=== PATIENT | female | born 1995 | race Caucasian/White ===

== ENCOUNTER → 2025-06-22 11:11 | Outpatient (REF) | payer OTHER, SELFPAY | LOC: DHSLP 11:11 | PROVIDERS: ATTENDING PHYSICIAN Internal Medicine; FAMILY PHYSICIAN Family Medicine | DX: G47.61 Periodic limb movement disorder (principal); R06.83 Snoring | CPT/HCPCS: 95810 ==

== ENCOUNTER → 2025-06-23 07:37 | Outpatient (REF) | payer OTHER, SELFPAY | LOC: DHSLP 07:37 | PROVIDERS: ATTENDING PHYSICIAN Internal Medicine; FAMILY PHYSICIAN Family Medicine | DX: G47.11 Idiopathic hypersomnia with long sleep time (principal) | CPT/HCPCS: 95805 ==